=== PATIENT | male | born 1965 | race Caucasian/White ===

== ENCOUNTER 2018-03-18 11:39 | Emergency (ER) | payer BC, OTHER ==
[2018-03-18] MEDS ORDERED: HYDROcodone/Acetaminophen 5/325 mg Tablet ONE (14:01)
--- NOTE | 2018-03-18 14:18 | CT ---
HEAD CT WITHOUT CONTRAST: Date: 03/18/18 COMPARISON: 12/18/13. HISTORY: Fall, trauma, pain. TECHNIQUE: Serial axial CT imaging obtained at 5 mm intervals from vertex through skull base without contrast. FINDINGS: Visualized paranasal sinuses/mastoid air cells are well aerated. There is no displaced calvarial fracture, intracranial hemorrhage, midline shift, or mass effect. IMPRESSION: Stable head CT. No intracranial hemorrhage or displaced calvarial fracture. POS: [facility]
--- NOTE | 2018-03-18 14:58 | CT ---
CT CERVICAL SPINE WITH SAGITTAL AND CORONAL REFORMATTED IMAGES: History: Fall. No loss of consciousness. Neck pain. FINDINGS/IMPRESSION: There are mild degenerative changes in the cervical spine. No acute fracture or subluxation identifie d. POS: [facility]
--- NOTE | 2018-03-18 14:59 | RAD ---
FRONTAL AND LATERAL IMAGING LEFT HIP: Date: 03-18-18 Comparison: None. History: Fall, trauma, pain. FINDINGS: There is mild superior joint space narrowing involving the left hip. There is mild left lateral aceta bular osteophyte formation. No acute fracture or dislocation. IMPRESSION: No acute findings. POS: [facility]
--- NOTE | 2018-03-18 15:01 | RAD ---
FRONTAL RADIOGRAPH PELVIS: Date: 03/18/18 COMPARISON: None. HISTORY: Cough, trauma, pain. FINDINGS: There is no widening of the sacroiliac joints or pubic symphysis. The femoral heads project normally with their respective acetabulum. The pelvic ring is intact with no displaced fracture or evidence of dislocation. IMPRESSION: No acute findings. POS: [facility]
[2018-03-18] MEDS ORDERED: Ketorolac Tromethamine 60 MG/2 ML VIAL ONE (15:10)
== END 2018-03-18 16:23 | disposition home or self-care (01) ==
LOC: ERS 11:39
DX: S09.90XA Unspecified injury of head, initial encounter (principal); S70.02XA Contusion of left hip, initial encounter; W11.XXXA Fall on and from ladder, initial encounter
CPT/HCPCS: 70450; 72125; 72170; 96372; J1885

== ENCOUNTER 2019-08-10 13:34 | Emergency (ER) | payer BC, OTHER ==
--- NOTE | 2019-08-10 14:33 | RAD ---
Right hand:3 views. INDICATIONS:Injury with pain. COMPARISON:None FINDINGS: Carpals appear normally aligned and intact. Metacarpals appear intact. Soft tissue disruption involving the distal tip of the third finger. No fracture or osseous abnormali ty identified. MCP and IP joints appear unremarkable. IMPRESSION: Soft tissue injury involving the distal third finger. No osseous abnormality identified.
== END 2019-08-10 15:45 | disposition home or self-care (01) ==
LOC: ERS 13:34
DX: S61.302A Unspecified open wound of right middle finger with damage to nail, initial encounter (principal); W31.89XA Contact with other specified machinery, initial encounter

== ENCOUNTER 2019-09-09 09:16 | Outpatient (CLI) | payer OTHER ==
[2019-09-09 12:03] LABS: Bacteria/HPF None Seen HPF (None Seen); Bilirubin Negative (Negative); Blood, Urine Negative (Negative); Clarity Clear (Clear); Glucose, Urine (Dipstick) Normal (Negative); Leukocyte Negative Leu/uL (Negative); Nitrite Negative (Negative); Protein, Urine (Dipstick) Negative (Neg-Trace); RBC/HPF 0-3 HPF (0-3); Squamous Epithelial None Seen HPF (0-3); Urobilinogen Normal mg/dL (Less than 2); WBC/HPF 0-3 HPF (0-3)
[2019-09-09 12:23] LABS: #Basophils 0.1 thou/uL (0.0-0.2); #Eosinphils 0.1 thou/uL (0.0-0.7); #Lymphocytes 2.4 thou/uL (1.20-3.40); #Monocytes 0.4 thou/uL (0.11-0.59); #Neutrophils 3.6 thou/uL (1.40-6.50); %Basophils 0.8 % (0.0-1.0); %Eosinophils 1.2 % (0.0-10.0); %Lymphocytes 36.6 % (21.0-51.0); %Monocytes 6.5 % (0.0-10.0); %Neutrophils 54.9 % (42.0-75.0); Mean Corpuscular HGB CONC 33.3 g/dL (32.0-36.0); Mean Corpuscular Hemoglobin 29.6 pg (27.0-31.0); Mean Corpuscular Volume 88.8 fL (78.0-98.0); Mean Platelet Volume 8.5 fL (7.4-10.4); Platelet Count 205 thou/uL (130-400); RBC Distribution Width 11.9 % (11.5-14.5); Red Blood Cell (RBC) Count 5.06 mill/uL (4.70-6.10); White Blood Cell (WBC) Count 6.6 thou/uL (4.8-10.8)
== END 2019-09-09 09:17 | disposition home or self-care (01) ==
LOC: LABBT 09:16
PROVIDERS: ATTEND Orthopaedic Surgery Hand Surgery
DX: Z01.812 Encounter for preprocedural laboratory examination (principal); S61.302A Unspecified open wound of right middle finger with damage to nail, initial encounter
CPT/HCPCS: 81001; 85025

== ENCOUNTER 2019-09-14 13:00 | Day surgery (SDC) | payer OTHER ==
[2019-09-09 11:18] VITALS: BMI 34.2
[~2019-09-14 13:00] MED LIST: Dexamethasone 20 MG/5 ML VIAL ONE; Ketorolac Tromethamine 30 MG/ML VIAL ONE; Lidocaine 1% PF 5 ML VIAL ONE; Ondansetron PF 4 MG/2 ML Vial ONE; PROPOFOL 200 MG/20 ML VIAL ONE; ePHEDrine/0.9% NaCl/PF SYRINGE 50 mg/10 ml ONE
[2019-09-14] MEDS ORDERED: Fentanyl 100 MCG/2 ML VIAL ONE ×2 (16:15→18:33)
[2019-09-14] MEDS ORDERED: Bacitracin Zinc Ointment 30 gm TUBE ONE (16:24)
[2019-09-14] MEDS ORDERED: Sodium Chloride 0.9% 10 ML ONE (16:24)
[2019-09-14] MEDS ORDERED: Bupivacaine 0.25% HCL 30 ML VIAL ONE (16:24)
[2019-09-14] MEDS ORDERED: HYDROcodone/Acetaminophen 5/325 mg Tablet ONE (18:46)
--- NOTE | 2019-09-14 19:29 | RAD ---
TWO INTRAOPERATIVE FLUOROSCOPIC IMAGES OF THE DISTAL ASPECT OF THE RIGHT MIDDLE FINGER: FINDINGS\IMPRESSION: Two intraoperative fluoroscopic images of the distal portion of the right middle finger are submitted . Images demonstrate metallic instruments overlying the finger. Correlation with intraoperative findi ngs is recommended. POS: [facility]
--- NOTE | 2019-09-14 19:59 | OP ---
DATE OF PROCEDURE: 09/14/2019 PREOPERATIVE DIAGNOSIS: Right middle finger 5 x 7 mm nailbed defect, full thickness loss. POSTOPERATIVE DIAGNOSIS: Right middle finger 5 x 7 mm nailbed defect, full thickness loss. PROCEDURES PERFORMED: 1. Debridement of nailbed, right middle finger. 2. A 5 x 7 mm split-thickness graft application, right middle finger. At the right ring finger. a. Removal of nail. b. [place] of nailbed graft as described above. INDICATIONS FOR PROCEDURE: The patient had a full thickness loss with some nail exposed. He had had previous bone debridement and mild shortening leaving him with a defect that was visible with no nail and granulation tissue only, where it was certain the nail would not grow. On clinical evaluation just today of surgery, he already had 5 mm of nail growing symmetrically, and it appeared to us that the germinal matrix was still intact. DESCRIPTION OF PROCEDURE: After successful general endotracheal anesthesia, the limb was prepped and draped. He had augmentation with 10 mL of 0.5% Marcaine block, first at the middle finger and then the ring finger. We removed the early new nail. We exsanguinated the limb, inflated the tourniquet to 250 mmHg pressure. This was after we had performed the debridement and saw where the bleeding tissue was, the granulation tissue, and saw there was no further exposed bone, but the size was measured via template and it was approximately 5 mm x 8 mm. This involved the whole distal one-third of the sterile matrix. The patient had skin flap that had grown over some of the nail, we resected this back so that it would be skin in the nail groove. We then finished debridement using the curette, [place] blade, irrigation with 250 mL of normal saline. There was mild excisional technique used and we were down to but not including the bone, leaving the granulation bed over the bone and area where the nail bed was no longer visible or palpable. We then finished given the block to the ring finger, removed the nail, and harvested the graft using the template [facility] The patient then had the graft lifted with a very sharp new blade, care was taken not to penetrate to take a full-thickness nailbed graft. We then put the split-thickness graft on and secured it with 4 sutures in the primary graft and then an L-shaped area on the ulnar side of the nail with 2 sutures all of which was 6-0 chromic sutures. They were cut very short, but enough of the knot was maintained to stabilize the graft in place. We released the tourniquet, obtained hemostasis in both fingers. I then placed bacitracin, Adaptic on both digit nailbed, with a thick layer enough to prevent adhesion later on, then placed a bolster with 4-0 nylon x2 bolster sutures tied over the middle finger, bacitracin, Adaptic. Then, bulky dressing applied to both along with a finger tube gauze, where the finger tube gauze for each digit was secured to the wrist with a wrap of [place]. The patient left the operating room without evidence of anesthetic or operative complication. Job ID: [id number]
== END 2019-09-14 20:15 | disposition home or self-care (01) ==
LOC: SDC 13:00
PROVIDERS: ATTEND Orthopaedic Surgery Hand Surgery
PROC: 0HRQX7Z Replacement of Finger Nail with Autologous Tissue Substitute, External Approach (ICD-10-PCS; principal; 2019-09-14)
DX: S61.312A Laceration without foreign body of right middle finger with damage to nail, initial encounter (principal); W45.8XXA Other foreign body or object entering through skin, initial encounter; Y99.0 Civilian activity done for income or pay
CPT/HCPCS: 76000; J0690; J1100; J1885; J2001; J2405; J2704; J3010; J3490; S0020